=== PATIENT | female | born 1950 | race Caucasian/White ===

== ENCOUNTER 2021-09-03 13:21 | Inpatient (IN) ==
[2021-09-03] MEDS ORDERED: HYDROcodone/ACETAMIN 5/325 mg TAB PO ONE (13:31)
[2021-09-03 16:54] LABS: Rapid COVID-19 Molecular Undetected (Undetected)
[2021-09-03 17:29] LABS: ABS Lymphocytes 0.9 10^3/ul (1.0-4.8); ABS Monocytes 0.3 10^3/ul (0-0.8); ABS Neutrophils 9.1 10^3/ul (1.5-7.7); Eosinophil % 0.2 %; Hematocrit 41 % (35-47); Hemoglobin 14.1 g/dL (12.0-16.0); Lymphocyte % 8.9 %; Mean Corpuscular HGB Conc 34 g/dL (31-36); Mean Corpuscular Hemoglobin 29 pg (27-31); Mean Corpuscular Volume 84 fL (80-97); Mean Platelet Volume 7.4 fL (7.4-10.4); Nucleated Red Blood Cells % 0.1; Platelet Count 246 10^3/uL (150-450); Red Blood Count 4.87 10^6 /uL (3.70-4.87); Red Cell Distribution Width 15 % (10-15); White Blood Count 10.4 10^3/uL (3.5-10.8)
[2021-09-03 17:48] LABS: Albumin 4.2 g/dL (3.2-5.2); Albumin/Globulin Ratio 1.5 (1-3); Calcium 9.1 mg/dL (8.6-10.3); Globulin 2.8 g/dL (2-4); Potassium 3.7 mmol/L (3.5-5.0); Total Bilirubin 0.5 mg/dL (0.2-1.0)
[2021-09-03 18:25] LABS: INR 1.15 (0.86-1.15)
[2021-09-03] MEDS ORDERED: fentaNYL 100 mcg/2 ml 50 MCG/ML VIAL ONE (20:38)
[2021-09-03] MEDS ORDERED: Propofol 10 MG/ML 20 ML BTL ONE ×2 (20:38→21:18)
[2021-09-03] MEDS ORDERED: Lidocaine 2% PF 5 ML VIAL ONE (20:38)
[2021-09-03] MEDS ORDERED: Midazolam 2 mg/2 ml VIAL 1 mg/ml 2 ml VIAL (2 mg) ONE (20:38)
[2021-09-04 06:17] LABS: ABS Lymphocytes 1.9 10^3/ul (1.0-4.8); ABS Monocytes 0.5 10^3/ul (0-0.8); ABS Neutrophils 4.7 10^3/ul (1.5-7.7); Eosinophil % 0.4 %; Hematocrit 37 % (35-47); Hemoglobin 12.4 g/dL (12.0-16.0); Lymphocyte % 26.5 %; Mean Corpuscular HGB Conc 34 g/dL (31-36); Mean Corpuscular Hemoglobin 28 pg (27-31); Mean Corpuscular Volume 84 fL (80-97); Platelet Count 219 10^3/uL (150-450); Red Blood Count 4.37 10^6 /uL (3.70-4.87); Red Cell Distribution Width 15 % (10-15); White Blood Count 7.1 10^3/uL (3.5-10.8)
[2021-09-04 06:37] LABS: Calcium 8.6 mg/dL (8.6-10.3)
[2021-09-04] MEDS ORDERED: ZOLEDRONIC ACID IVPB ONE (16:26)
[2021-09-04] MEDS ORDERED: NS 0.9% IVPB ONE (16:26)
[2021-09-04] MEDS ORDERED: Zoledronic/Mannitol 5 MG/100ML 5 MG/100 ML BTL IVPB ONE (17:00)
[2021-09-04] MEDS ORDERED: Ondansetron 4 mg VIAL 2 MG/ML 2 ml VIAL IV PRN (19:00)
[2021-09-05] MEDS: Heparin 5000 UNITS/ML 1 mL VIAL SUBCUT SCH ×2 (13:09→21:37)
[2021-09-05] MEDS: HYDROmorphone 0.5 MG/0.5 ML SYRINGE IV SLOW PU PRN (16:56)
[2021-09-06] MEDS: Heparin 5000 UNITS/ML 1 mL VIAL SUBCUT SCH ×3 (05:45→22:34)
[2021-09-06] MEDS ORDERED: Senna TAB 8.6 mg TAB PO PRN (08:04)
[2021-09-06 09:15] LABS: ABS Lymphocytes 1.1 10^3/ul (1.0-4.8); ABS Monocytes 0.5 10^3/ul (0-0.8); ABS Neutrophils 6.5 10^3/ul (1.5-7.7); Eosinophil % 0.5 %; Hematocrit 35 % (35-47); Lymphocyte % 12.9 %; Mean Corpuscular HGB Conc 35 g/dL (31-36); Mean Corpuscular Hemoglobin 29 pg (27-31); Mean Corpuscular Volume 84 fL (80-97); Mean Platelet Volume 7.3 fL (7.4-10.4); Platelet Count 190 10^3/uL (150-450); Red Blood Count 4.14 10^6 /uL (3.70-4.87); Red Cell Distribution Width 14 % (10-15); White Blood Count 8.1 10^3/uL (3.5-10.8)
[2021-09-06 09:32] LABS: Calcium 8.3 mg/dL (8.6-10.3)
[2021-09-06] MEDS: Polyethylene Glycol 3350 17 GM PACKET PO PRN (10:00)
[2021-09-06] MEDS: HYDROmorphone 0.5 MG/0.5 ML SYRINGE IV SLOW PU PRN (13:48)
[2021-09-06 15:28] LABS: Urine Appearance Clear; Urine Bilirubin Negative (Negative); Urine Blood 1+ (Negative); Urine Color Yellow; Urine Glucose Negative (Negative); Urine Ketones Negative (Negative); Urine Nitrite Negative (Negative); Urine Protein Negative (Negative); Urine Urobilinogen Negative (Negative)
[2021-09-06 15:32] LABS: Urine Bacteria Absent (Absent); Urine Red Blood Cell Trace(0-2/hpf) (Absent); Urine White Blood Cell Trace(0-5/hpf) (Absent)
[2021-09-07] MEDS: Heparin 5000 UNITS/ML 1 mL VIAL SUBCUT SCH ×3 (05:47→23:25)
[2021-09-07 07:53] LABS: Calcium 8.2 mg/dL (8.6-10.3)
[2021-09-07] MEDS: Polyethylene Glycol 3350 17 GM PACKET PO PRN (08:24)
[2021-09-07] MEDS: Magnesium Hydroxide LIQ 30 ML UDC PO PRN (08:27)
[2021-09-08] MEDS ORDERED: Buffered Lidocaine 1% SYRIN 1 ml INTRADERM ONE (06:00)
[2021-09-08] MEDS ORDERED: Lactated Ringers 1000 ml BAG 1,000 ML IV SCH (06:00)
[2021-09-08] MEDS ORDERED: Dexamethasone IV 4 MG/ML VIAL 1 ml VIAL ONE ×2 (09:02→16:19)
[2021-09-08] MEDS ORDERED: Midazolam 2 mg/2 ml VIAL 1 mg/ml 2 ml VIAL (2 mg) ONE (09:02)
[2021-09-08] MEDS ORDERED: DiMENhydriNATE IV 50 mg/ml 1 ml VIAL IV PUSH PRN (10:21)
[2021-09-08] MEDS ORDERED: fentaNYL 100 mcg/2 ml 50 MCG/ML VIAL IV PRN (10:21)
[2021-09-08] MEDS ORDERED: Rocuronium 50 mg VIAL 10 mg/ml 5 ml VIAL (50 mg) ONE ×3 (10:21→18:23)
[2021-09-08] MEDS ORDERED: Ondansetron 4 mg VIAL 2 MG/ML 2 ml VIAL IV PRN (10:21)
[2021-09-08] MEDS ORDERED: Naloxone 0.4 mg VIAL 0.4 mg/ml 1 ml VIAL IV PRN (10:21)
[2021-09-08] MEDS ORDERED: Acetaminophen IV 1 GM/100ML 100 ML IV ONE ×2 (10:21→18:43)
[2021-09-08] MEDS ORDERED: Lidocaine 2% PF 5 ML VIAL ONE (10:49)
[2021-09-08] MEDS ORDERED: Propofol 10 MG/ML 20 ML BTL ONE (10:50)
[2021-09-08] MEDS ORDERED: Ondansetron 4 mg VIAL 2 MG/ML 2 ml VIAL ONE ×2 (10:50→20:35)
[2021-09-08] MEDS ORDERED: ROPIVACAINE 5 MG/ML 30 ML BTL (0.5%) ONE (11:02)
[2021-09-08] MEDS ORDERED: Clindamycin 900 MG/D5W BAG 900 MG/50 ML BAG IVPB ONE (13:28)
[2021-09-08] MEDS ORDERED: Phenylephrine 40 mcg/mL 10mL (400mcg) SYRINGE ONE (13:56)
[2021-09-08] MEDS ORDERED: Morphine 10 MG/ML VIAL (1 ml) ONE (14:51)
[2021-09-08] MEDS ORDERED: Bupivacaine 0.5% SDV PF 30ML VIAL ONE (16:26)
[2021-09-08] MEDS ORDERED: Vancomycin 1,000 MG VIAL ONE (18:11)
[2021-09-08] MEDS ORDERED: Clindamycin VIAL 8 ML ONE (19:41)
[2021-09-08] MEDS ORDERED: HYDROmorphone 1 MG/1 ML SYRINGE ONE (20:35)
[2021-09-08] MEDS: HYDROmorphone 1 MG/1 ML SYRINGE IV PRN ×3 (20:37→21:03)
[2021-09-08] MEDS ORDERED: fentaNYL 100 mcg/2 ml 50 MCG/ML VIAL ONE (20:58)
[2021-09-08] MEDS ORDERED: NS 0.9% 1,000 ML IV SCH (23:45)
[2021-09-09] MEDS: Clindamycin 600 MG/D5W BAG IV SCH ×3 (03:45→21:22)
[2021-09-09 07:32] LABS: Albumin 3.1 g/dL (3.2-5.2); Albumin/Globulin Ratio 1.2 (1-3); Calcium 7.5 mg/dL (8.6-10.3); Globulin 2.5 g/dL (2-4); Potassium 4.6 mmol/L (3.5-5.0); Total Bilirubin 0.8 mg/dL (0.2-1.0); Total Protein 5.6 g/dL (6.4-8.9)
[2021-09-09 10:27] LABS: ABS Lymphocytes 0.7 10^3/ul (1.0-4.8); ABS Monocytes 0.6 10^3/ul (0-0.8); ABS Neutrophils 5.7 10^3/ul (1.5-7.7); Hematocrit 31 % (35-47); Hemoglobin 10.7 g/dL (12.0-16.0); Mean Corpuscular HGB Conc 34 g/dL (31-36); Mean Corpuscular Hemoglobin 29 pg (27-31); Mean Corpuscular Volume 84 fL (80-97); Mean Platelet Volume 7.4 fL (7.4-10.4); Nucleated Red Blood Cells % 0.1; Platelet Count 251 10^3/uL (150-450); Red Blood Count 3.73 10^6 /uL (3.70-4.87); Red Cell Distribution Width 15 % (10-15); White Blood Count 7.1 10^3/uL (3.5-10.8)
[2021-09-09] MEDS: Enoxaparin 40 MG/0.4 ML SYR SUBCUT SCH (12:09)
[2021-09-09] MEDS: Magnesium Hydroxide LIQ 30 ML UDC PO PRN (14:49)
[2021-09-10] MEDS: Clindamycin 600 MG/D5W BAG IV SCH ×3 (04:17→19:45)
[2021-09-10] MEDS: Polyethylene Glycol 3350 17 GM PACKET PO PRN (08:36)
[2021-09-10] MEDS: Enoxaparin 40 MG/0.4 ML SYR SUBCUT SCH (11:40)
[2021-09-10] MEDS: HYDROmorphone 0.5 MG/0.5 ML SYRINGE IV SLOW PU PRN (19:09)
[2021-09-11] MEDS: Clindamycin 600 MG/D5W BAG IV SCH ×2 (03:44→12:04)
[2021-09-11] MEDS: Polyethylene Glycol 3350 17 GM PACKET PO PRN (09:41)
[2021-09-11] MEDS: Enoxaparin 40 MG/0.4 ML SYR SUBCUT SCH (12:00)
[2021-09-11 13:03] VITALS: BP 109/84
== END 2021-09-11 13:14 | DRG 481 ==
LOC: ED 13:21 → SUATTDRO 21:02 → EDHOLD 21:02 → SSU 09-04 06:49
PROVIDERS: ADMIT Hospitalist; ATTEND Hospitalist

== ENCOUNTER 2021-09-11 13:26 | Inpatient (IN) ==
[2021-09-11] MEDS ORDERED: Magnesium Hydroxide LIQ 30 ML UDC PO PRN (14:44)
[2021-09-11] MEDS ORDERED: Polyethylene Glycol 3350 17 GM PACKET PO PRN (16:51)
[2021-09-12 06:42] LABS: ABS Eosinophils 0.2 10^3/ul (0-0.6); ABS Lymphocytes 1.4 10^3/ul (1.0-4.8); ABS Monocytes 0.4 10^3/ul (0-0.8); ABS Neutrophils 4.5 10^3/ul (1.5-7.7); Eosinophil % 3.7 %; Hematocrit 26 % (35-47); Hemoglobin 9.1 g/dL (12.0-16.0); Lymphocyte % 20.8 %; Mean Corpuscular HGB Conc 35 g/dL (31-36); Mean Corpuscular Hemoglobin 29 pg (27-31); Mean Corpuscular Volume 84 fL (80-97); Mean Platelet Volume 6.3 fL (7.4-10.4); Nucleated Red Blood Cells % 0.1; Platelet Count 327 10^3/uL (150-450); Red Blood Count 3.15 10^6 /uL (3.70-4.87); Red Cell Distribution Width 15 % (10-15); White Blood Count 6.5 10^3/uL (3.5-10.8)
[2021-09-12 07:00] LABS: Albumin 2.8 g/dL (3.2-5.2); Globulin 2.7 g/dL (2-4); Potassium 3.9 mmol/L (3.5-5.0); Total Bilirubin 0.8 mg/dL (0.2-1.0); Total Protein 5.5 g/dL (6.4-8.9)
[2021-09-12] MEDS: Enoxaparin 40 MG/0.4 ML SYR SUBCUT SCH (12:47)
[2021-09-13 07:27] LABS: ABS Eosinophils 0.2 10^3/ul (0-0.6); ABS Lymphocytes 1.4 10^3/ul (1.0-4.8); ABS Monocytes 0.4 10^3/ul (0-0.8); ABS Neutrophils 4.3 10^3/ul (1.5-7.7); Eosinophil % 3.6 %; Hematocrit 28 % (35-47); Hemoglobin 9.4 g/dL (12.0-16.0); Lymphocyte % 21.5 %; Mean Corpuscular HGB Conc 34 g/dL (31-36); Mean Corpuscular Hemoglobin 29 pg (27-31); Mean Corpuscular Volume 85 fL (80-97); Mean Platelet Volume 6.1 fL (7.4-10.4); Nucleated Red Blood Cells % 0.1; Platelet Count 383 10^3/uL (150-450); Red Blood Count 3.29 10^6 /uL (3.70-4.87); Red Cell Distribution Width 15 % (10-15); White Blood Count 6.3 10^3/uL (3.5-10.8)
[2021-09-13] MEDS: Enoxaparin 40 MG/0.4 ML SYR SUBCUT SCH (12:43)
[2021-09-14] MEDS: Enoxaparin 40 MG/0.4 ML SYR SUBCUT SCH (13:10)
[2021-09-15] MEDS: Enoxaparin 40 MG/0.4 ML SYR SUBCUT SCH (14:09)
[2021-09-16] MEDS: Enoxaparin 40 MG/0.4 ML SYR SUBCUT SCH (10:46)
[2021-09-17] MEDS: Enoxaparin 40 MG/0.4 ML SYR SUBCUT SCH (09:00)
[2021-09-18] MEDS: Enoxaparin 40 MG/0.4 ML SYR SUBCUT SCH (08:16)
[2021-09-18] MEDS: Senna TAB 8.6 mg TAB PO PRN (21:01)
[2021-09-19 07:44] LABS: Albumin 3.1 g/dL (3.2-5.2); CO2 Carbon Dioxide 24 mmol/L (22-32); Calcium 8.4 mg/dL (8.6-10.3); Chloride 105 mmol/L (101-111); Sodium 135 mmol/L (135-145)
[2021-09-19 07:47] LABS: Anion Gap 6 mmol/L (2-11)
[2021-09-19 07:50] LABS: ALT 31 U/L (7-52); Albumin/Globulin Ratio 1.4 (1-3); Alkaline Phosphatase 74 U/L (35-149); Blood Urea Nitrogen 11 mg/dL (6-24); Globulin 2.2 g/dL (2-4); Glucose 92 mg/dL (70-100); Total Protein 5.3 g/dL (6.4-8.9)
[2021-09-19 08:46] LABS: ABS Eosinophils 0.1 10^3/ul (0-0.6); ABS Lymphocytes 1.2 10^3/ul (1.0-4.8); ABS Monocytes 0.3 10^3/ul (0-0.8); ABS Neutrophils 4.4 10^3/ul (1.5-7.7); Eosinophil % 1.5 %; Hematocrit 32 % (35-47); Hemoglobin 10.6 g/dL (12.0-16.0); Lymphocyte % 20.4 %; Mean Corpuscular HGB Conc 33 g/dL (31-36); Mean Corpuscular Hemoglobin 29 pg (27-31); Mean Corpuscular Volume 86 fL (80-97); Mean Platelet Volume 6.3 fL (7.4-10.4); Platelet Count 500 10^3/uL (150-450); Red Blood Count 3.71 10^6 /uL (3.70-4.87); Red Cell Distribution Width 17 % (10-15); White Blood Count 6.1 10^3/uL (3.5-10.8)
[2021-09-19 09:09] LABS: Potassium Redraw 4.5 mmol/L (3.5-5.0)
[2021-09-19] MEDS: Enoxaparin 40 MG/0.4 ML SYR SUBCUT SCH (09:26)
[2021-09-20] MEDS: Enoxaparin 40 MG/0.4 ML SYR SUBCUT SCH (09:37)
[2021-09-21] MEDS: Enoxaparin 40 MG/0.4 ML SYR SUBCUT SCH (08:41)
[2021-09-22] MEDS: Enoxaparin 40 MG/0.4 ML SYR SUBCUT SCH (07:35)
[2021-09-22 16:43] LABS: Urine Appearance Cloudy; Urine Bilirubin Negative (Negative); Urine Blood 2+ (Negative); Urine Color Yellow; Urine Glucose Negative (Negative); Urine Ketones Negative (Negative); Urine Nitrite Negative (Negative); Urine Protein 2+(100 mg/dL) (Negative); Urine Specific Gravity 1.008 (1.002-1.030); Urine Urobilinogen Negative (Negative)
[2021-09-22 16:53] LABS: Urine Bacteria 1+ (Absent); Urine Red Blood Cell 2+(6-10/hpf) (Absent); Urine Squamous Epithelial Cell Present (Absent); Urine White Blood Cell 3+(>20/hpf) (Absent)
[2021-09-22] MEDS: Sulfamethox/Trimethoprim DS TAB 800/160 mg PO SCH (22:56)
[2021-09-23] MEDS: Enoxaparin 40 MG/0.4 ML SYR SUBCUT SCH (08:59)
[2021-09-23] MEDS: Sulfamethox/Trimethoprim DS TAB 800/160 mg PO SCH ×2 (09:00→20:21)
[2021-09-23] MEDS: Senna TAB 8.6 mg TAB PO PRN (21:41)
[2021-09-24] MEDS: Enoxaparin 40 MG/0.4 ML SYR SUBCUT SCH (08:53)
[2021-09-24] MEDS: Sulfamethox/Trimethoprim DS TAB 800/160 mg PO SCH ×2 (08:53→20:14)
[2021-09-25] MEDS: Enoxaparin 40 MG/0.4 ML SYR SUBCUT SCH (08:32)
[2021-09-25] MEDS: Sulfamethox/Trimethoprim DS TAB 800/160 mg PO SCH ×2 (08:32→20:38)
[2021-09-26 06:51] LABS: ABS Eosinophils 0.4 10^3/ul (0-0.6); ABS Lymphocytes 0.8 10^3/ul (1.0-4.8); ABS Monocytes 0.3 10^3/ul (0-0.8); Hematocrit 33 % (35-47); Lymphocyte % 22.4 %; Mean Corpuscular HGB Conc 33 g/dL (31-36); Mean Corpuscular Hemoglobin 28 pg (27-31); Mean Corpuscular Volume 85 fL (80-97); Mean Platelet Volume 6.2 fL (7.4-10.4); Platelet Count 399 10^3/uL (150-450); Red Blood Count 3.89 10^6 /uL (3.70-4.87); Red Cell Distribution Width 17 % (10-15); White Blood Count 3.4 10^3/uL (3.5-10.8)
[2021-09-26 07:07] LABS: Albumin 3.3 g/dL (3.2-5.2); Albumin/Globulin Ratio 1.4 (1-3); Calcium 8.6 mg/dL (8.6-10.3); Globulin 2.4 g/dL (2-4); Potassium 3.9 mmol/L (3.5-5.0); Total Bilirubin 0.4 mg/dL (0.2-1.0); Total Protein 5.7 g/dL (6.4-8.9)
[2021-09-26] MEDS: Enoxaparin 40 MG/0.4 ML SYR SUBCUT SCH (08:54)
[2021-09-27] MEDS: Enoxaparin 40 MG/0.4 ML SYR SUBCUT SCH (08:00)
[2021-09-28] MEDS: Enoxaparin 40 MG/0.4 ML SYR SUBCUT SCH (08:47)
[2021-09-29] MEDS: Enoxaparin 40 MG/0.4 ML SYR SUBCUT SCH (08:36)
[2021-09-29] MEDS: Senna TAB 8.6 mg TAB PO PRN (20:42)
[2021-09-30] MEDS: Enoxaparin 40 MG/0.4 ML SYR SUBCUT SCH (08:42)
[2021-10-01] MEDS: Enoxaparin 40 MG/0.4 ML SYR SUBCUT SCH (08:34)
[2021-10-02] MEDS: Enoxaparin 40 MG/0.4 ML SYR SUBCUT SCH (09:13)
[2021-10-03 06:40] LABS: ABS Eosinophils 0.1 10^3/ul (0-0.6); ABS Lymphocytes 1.7 10^3/ul (1.0-4.8); ABS Monocytes 0.2 10^3/ul (0-0.8); Eosinophil % 3.6 %; Hematocrit 36 % (35-47); Hemoglobin 11.8 g/dL (12.0-16.0); Mean Corpuscular HGB Conc 33 g/dL (31-36); Mean Corpuscular Hemoglobin 28 pg (27-31); Mean Corpuscular Volume 86 fL (80-97); Mean Platelet Volume 6.3 fL (7.4-10.4); Platelet Count 320 10^3/uL (150-450); Red Blood Count 4.19 10^6 /uL (3.70-4.87); Red Cell Distribution Width 17 % (10-15); White Blood Count 4.1 10^3/uL (3.5-10.8)
[2021-10-03 06:55] LABS: Albumin 3.4 g/dL (3.2-5.2); Albumin/Globulin Ratio 1.5 (1-3); Calcium 9.1 mg/dL (8.6-10.3); Globulin 2.3 g/dL (2-4); Potassium 3.9 mmol/L (3.5-5.0); Total Bilirubin 0.3 mg/dL (0.2-1.0); Total Protein 5.7 g/dL (6.4-8.9); eGFR CKD-EPI 99.4 (>60)
[2021-10-03] MEDS: Enoxaparin 40 MG/0.4 ML SYR SUBCUT SCH (09:16)
[2021-10-04] MEDS: Enoxaparin 40 MG/0.4 ML SYR SUBCUT SCH (08:17)
[2021-10-05] MEDS: Enoxaparin 40 MG/0.4 ML SYR SUBCUT SCH (08:23)
[2021-10-06] MEDS: Enoxaparin 40 MG/0.4 ML SYR SUBCUT SCH (08:48)
[2021-10-07 05:17] VITALS: BP 110/71
== END 2021-10-07 12:40 | disposition home or self-care (01) | DRG 560 ==
LOC: PMRU 13:26
PROVIDERS: ADMIT Physical Medicine & Rehabilitation; ATTEND Physical Medicine & Rehabilitation